=== PATIENT | male | born 2000 | race Caucasian/White ===

== ENCOUNTER → 2024-09-25 | Day surgery (SDC) | payer OTHER ==
[2024-09-24 11:34] LABS: BASOPHILS % 0.5 % (0.0-1.0); EOSINOPHILS % 2.4 % (0.0-6.0); LYMPHOCYTES % 30.2 % (18.0-39.1); MONOCYTES % 8.5 % (4.4-11.3); NEUTROPHILS % 57.7 % (38.7-80.0); RED CELL DISTRIBUTION WIDTH 12.5 % (11.7-14.4)
[2024-09-24 12:14] LABS: EST GLOMERULAR FILTRATION RATE 120.0 ML/MIN (>=60)
[~2024-09-25] MED LIST: ACETAMINOPHEN 1000 MG/100 ML 100 ML IV ONE; DEXAMETHASONE SOD PHOS INJ 4 MG/ML SDV ONE; FENTANYL CITRATE/PF 100MCG/2 ML INJ ONE; LIDOCAINE HCL 2% LOCAL INJ 5 ML SDV VIAL INJ ONE; MIDAZOLAM HCL 2 MG/2 ML VIAL ONE; ONDANSETRON HCL INJ 2MG/ML 2ML 2 MG/ML VIAL ONE; PROPOFOL IV EMULSION 10 MG/ML 20 ML VIAL ONE; ROCURONIUM BROMIDE 1 ML IV ONE; SEVOFLURANE INHAL SOLN 250 ML PEN BTL ONE; SUCCINYLCHOLINE CHLORIDE 20 MG/ML 10ML VIAL ONE; SUGAMMADEX SODIUM 200 MG/2 ML VIAL IV ONE
[2024-09-25] MEDS: LACTATED RINGER'S 1,000 ML ONE (08:06)
[2024-09-25] MEDS: FENTANYL CITRATE/PF 100MCG/2 ML INJ ONE (11:46)
[2024-09-25 11:55] VITALS: TEMP 97.5
[2024-09-25 12:20] VITALS: BP 111/68; PULSE 85; RESP 16; O2SAT 96
== END | disposition home or self-care (01) ==
LOC: OR 07:23
PROVIDERS: ATTEND Surgery
DX: L05.91 Pilonidal cyst without abscess (principal); Z01.812 Encounter for preprocedural laboratory examination
CPT/HCPCS: 36415; 80053; 85025; 88304; J0330; J1100; J2003; J2250; J2405